=== PATIENT | male | born 1960 | race Caucasian/White ===

== ENCOUNTER 2016-12-26 13:58 | Emergency (ER) | payer MEDICARE ==
[~2016-12-26] VITALS: Ht 188 cm; Wt 147.0 kg
[2016-12-26 14:03] VITALS: BP 158/100; PULSE 93; RESP 16; TEMP 99.1; O2SAT 97
[2016-12-26] MEDS ORDERED: HYDR-3516 PO (14:32)
[2016-12-26] MEDS ORDERED: MELO-1 PO (14:32)
--- NOTE | 2016-12-26 14:35 | PD ---
HPI Chief Complaint: Complaint Time Seen by Provider: 14:31 Travel History International Travel<30 days: No Contact w/Intl Traveler<30days: No Traveled to known affect area: No History of Present Illness HPI This is a 56-year-old male who presents to the emergency department with 2 weeks of severe dysuria feeling like he skin a pass out when he pleases associated with hematuria, has not used permeative, and 1 day of swelling and pain in his left testicle, constant, severe. Patient reports he's had some subjective fevers and chills. He says he hasn't been sexually active in over a year. He's never had symptoms like this before. PFSH Past Medical History Hx Anticoagulant Therapy: No Cardiovascular Problems: Yes (HTN) Diabetes: No Social History Alcohol Use: Yes Tobacco Use: No Allergies-Medications (Allergen,Severity, Reaction): Coded Allergies: No Known Allergies (Unverified , 12/26/16) Reported Meds & Prescriptions Reported Meds & Active Scripts Active Reported Hydrocodone-Acetaminophen 5-325 mg Tab 1 Tab PO Q4-6H PRN Meloxicam 15 Mg Tab 15 Mg PO DAILY Review of Systems Except as stated in HPI: all other systems reviewed are Neg Physical Exam Narrative GENERAL:Well appearing, no acute distress SKIN: Warm and dry. HEAD: Atraumatic. Normocephalic. EYES: Pupils equal and round. No injection or drainage. ENT: Moist mucous membranes NECK: Trachea midline. CARDIOVASCULAR: Regular rate and rhythm. No murmur appreciated. RESPIRATORY: Clear to auscultation. Breath sounds equal bilaterally. GASTROINTESTINAL: Abdomen soft, non-tender, nondistended. : Swelling of the left testicle with some superficial erythema, tender to palpation along the posterior aspect of the testicle. MUSCULOSKELETAL: No obvious deformities. NEUROLOGICAL: Awake and alert. No obvious cranial nerve deficits. Moving all extremities. PSYCHIATRIC: Appropriate mood and affect; insight and judgment normal. Data Data Last Documented VS Vital Signs Date Time Temp Pulse Resp B/P Pulse Ox O2 Delivery O2 Flow Rate FiO2 12/26/16 14:03 99.1 93 16 158/100 97 Orders Urinalysis - C+S If Indicated (12/26/16 14:31) Us Testicles W Doppler (12/26/16 ) Urine Culture (12/26/16 14:40) Ketorolac Inj (Toradol Inj) (12/26/16 15:15) Labs Laboratory Tests Test 12/26/16 14:40 Urine Collection Type CLEAN CATCH Urine Color YELLOW Urine Turbidity CLEAR Urine pH 6.0 Urine Specific [place] 1.018 Urine Protein NEG mg/dL Urine Glucose (UA) NEG mg/dL Urine Ketones NEG mg/dL Urine Occult Blood MOD Urine Nitrite NEG Urine Bilirubin NEG Urine Leukocyte Esterase MOD Urine RBC 100-200 /hpf Urine WBC 100-200 /hpf Urine WBC Clumps FEW Urine Squamous Epithelial 0-5 /hpf Cells Urine Bacteria MANY /hpf Microscopic Urinalysis Comment CULTURE INDICATED MDM Medical Decision Making Medical Screen Exam Complete: Yes Emergency Medical Condition: Yes Interpretation(s) Temperature is 99.1, hypertensive Differential Diagnosis Epididymitis, epididymal orchitis, urinary tract infection, pyelonephritis Narrative Course This is a 56-year-old male who presents to the emergency department with 2 weeks of symptoms classic for epididymitis. Urinalysis demonstrates gross infection. Ultrasound was obtained which confirms epididymitis with no evidence of underlying abscess. Patient will be discharged on antibiotics. He denies sexual activity so he'll be treated with Levaquin. He is nontoxic appearing at this time. Diagnosis Primary Impression: Acute epididymitis Referrals: Bang Black DO as needed Patient Instructions: General Instructions Additional Instructions: If you develop high fevers, chills, lightheadedness, dizziness or worsening pain return to the emergency department. Complete your antibiotics as prescribed. Med/Other Pt SpecificInfo: Prescription(s) given Scripts Levofloxacin (Levaquin)500 Mg [id number] Mg PO DAILY 10 Days Ref 0 Prov:Gwen Whitlock MD 12/26/16 Disposition: 01 DISCHARGE HOME Condition: Stable Gwen Whitlock MD Dec 26, 2016 14:35
[2016-12-26 14:50] LABS: GLUCOSE,URINE NEG (NEG); KETONE, URINE NEG (NEG); NITRITE,URINE NEG (NEG)
[2016-12-26 14:52] LABS: BLOOD, URINE MOD (NEG)
[2016-12-26 14:57] LABS: METHOD OF COLLECTION CLEAN CATCH
[2016-12-26 14:58] LABS: BACTERIA, URINE MANY /hpf; URINE COLOR YELLOW (YELLW/STRAW)
[2016-12-26 14:59] LABS: RBC, URINE 100-200 /hpf (0-3)
[2016-12-26 15:00] LABS: COMMENT (UR) CULTURE INDICATED; CULTURE IF INDICATED CULTURE INDICATED; SQUAMOUS EPITHELIAL CELL URINE 0-5 /hpf (0-5)
[2016-12-26 15:01] LABS: WBC, URINE 100-200 /hpf (0-5)
[2016-12-26] MEDS ORDERED: KETOROLAC TROMETHAMINE 60 MG/2 ML (IM) VIAL IM ONE (15:15)
--- NOTE | 2016-12-26 16:11 | RADHPO ---
EXAM DATE/TIME: 12/26/2016 15:00 [facility] COMPARISON: No previous studies available for comparison. INDICATIONS : Testicular pain. MEDICAL HISTORY : Hypertension. Arthritis. Substance use. SURGICAL HISTORY : Appendectomy. Hernia repair. Orthopedic surgery, bilateral shoulders. Bilateral knee replacements. ENCOUNTER: Initial ACUITY: 2 days PAIN SCORE: 9/10 LOCATION: Bilateral scrotum. MEASUREMENTS: RIGHT TESTICLE: 4.6 x 3.7 x 1.9cm LEFT TESTICLE: 4.3 x 3.7 x 2.5cm FINDINGS: RIGHT TESTICLE: Homogeneous echotexture without intra or extratesticular mass. Epididymis within normal limits. Color Doppler flow within normal limits. LEFT TESTICLE: Homogeneous echotexture without intra or extratesticular mass. Enlarged heterogeneous epididymis with diffusely increased color Doppler flow. SCROTUM: Within normal limits. CONCLUSION: Findings suggesting epididymitis on the left. Elie Guadarrama MD on December 26, 2016 at 16:08 Board Certified Radiologist. This report was verified electronically.
[2016-12-26] MEDS ORDERED: LEVA500T PO (16:17)
[2016-12-26 16:30] VITALS: BP 129/69; PULSE 86; RESP 14; O2SAT 94
[2017-03-13] MEDS ORDERED: CYCL1TAB29 PO (16:01)
== END 2016-12-26 16:30 | disposition home or self-care (01) ==
LOC: PHED 13:58
DX: N45.1 Epididymitis (principal); I10 Essential (primary) hypertension; B96.20 Unspecified Escherichia coli [E. coli] as the cause of diseases classified elsewhere
CPT/HCPCS: 76870; 81001; 87077; 87086; 87186; 93975; 96372; 99284; J1885

== ENCOUNTER 2017-01-24 17:49 | Emergency (ER) | payer MEDICARE ==
[~2017-01-24] VITALS: Ht 188 cm; Wt 149.0 kg
[~2017-01-24 17:49] MED LIST: HYDR-3516 PO; LEVA500T PO; MELO-1 PO
[2017-01-24 18:11] VITALS: BP 130/85; PULSE 77; RESP 20; TEMP 98.2; O2SAT 95
[2017-01-24 18:53] LABS: BLOOD, URINE NEG (NEG); GLUCOSE,URINE NEG (NEG); KETONE, URINE NEG (NEG); NITRITE,URINE NEG (NEG); PH, URINE 5.5 (5.0-8.5)
[2017-01-24 19:03] LABS: URINE COLOR YELLOW (YELLW/STRAW)
[2017-01-24 19:04] LABS: COMMENT (UR) CULT NOT INDICATED; CULTURE IF INDICATED CULT NOT INDICATED; MUCUS URINE MANY /lpf (OCC); SQUAMOUS EPITHELIAL CELL URINE > 8 /hpf (0-5); WBC, URINE 0-2 /hpf (0-5)
[2017-01-24 19:21] VITALS: BP 162/77; PULSE 77; RESP 20; O2SAT 95
--- NOTE | 2017-01-24 20:21 | RADHPO ---
EXAM DATE/TIME: 01/24/2017 19:39 [facility] COMPARISON: US TESTICLE W/DOPPLER, December 26, 2016, 15:00. INDICATIONS : Testicular pain. MEDICAL HISTORY : Arthritis. Hypertension. Substance use. SURGICAL HISTORY : Appendectomy. Hernia. repair. Bilateral shoulders. Bilateral knees replacements. ENCOUNTER: Subsequent ACUITY: 1 week PAIN SCORE: 4/10 LOCATION: Bilateral scrotum. MEASUREMENTS: RIGHT TESTICLE: 4.1 x 3.3 x 2.2cm LEFT TESTICLE: 3.1 x 3.3 x 2.6cm FINDINGS: RIGHT TESTICLE: Homogeneous echotexture without intra or extratesticular mass. Blood flow is symmetric and within no rmal limits. No hydrocele or varicocele. Epididymis is within normal limits. LEFT TESTICLE: Homogeneous echotexture without intra or extratesticular mass. Blood flow is symmetric and within no rmal limits. Moderate varicocele again noted.. Left epididymis slightly enlarged and slightly hyperem ic relative to the right. SCROTUM: Within normal limits. CONCLUSION: 1. Left epididymitis possible no proper clinical setting but appears to be very mild and certainly mu ch less severe than on the prior ultrasound. 2. A moderate left varicocele is again noted, not appreciably changed. 3. No torsion. Samuel Jeffries MD on January 24, 2017 at 20:17 Board Certified Radiologist. This report was verified electronically.
[2017-01-24] MEDS ORDERED: DOXY100C PO (20:54)
--- NOTE | 2017-01-24 20:55 | PD ---
HPI Chief Complaint: Complaint Time Seen by Provider: 18:49 Travel History International Travel<30 days: No Contact w/Intl Traveler<30days: No Traveled to known affect area: No History of Present Illness HPI Patient 56-year-old male presents emergency department for evaluation of left testicular pain. Patient states he has a history of epididymitis and had just finished a course of Levaquin and gradually the pain came back. He denies any history dysuria or possibly for STD. Denies any fever denies any testicular swelling. He denies abdominal pain nausea vomiting diarrhea. States pain is been present for several days gradually worsening. PFSH Past Medical History Hx Anticoagulant Therapy: No Arthritis: Yes Cardiovascular Problems: Yes (HTN) Diabetes: No Hypertension: Yes Past Surgical History Abdominal Surgery: Yes (Hernia) Appendectomy: Yes Joint Replacement: Yes (BL knees) Social History Alcohol Use: Yes (DAILY) Tobacco Use: No Substance Use: Yes (Marijuana occ.) Allergies-Medications (Allergen,Severity, Reaction): Coded Allergies: No Known Allergies (Unverified , 01/24/17) Reported Meds & Prescriptions Reported Meds & Active Scripts Active Doxycycline Hyclate 100 Mg Cap 100 Mg PO BID Reported Hydrocodone-Acetaminophen 5-325 mg Tab 1 Tab PO Q4-6H PRN Meloxicam 15 Mg Tab 15 Mg PO DAILY Review of Systems Except as stated in HPI: all other systems reviewed are Neg Physical Exam Narrative GENERAL: Well-developed well-nourished, overweight but in no apparent distress. SKIN: Focused skin assessment warm/dry. HEAD: Atraumatic. Normocephalic. EYES: Pupils equal and round. No scleral icterus. No injection or drainage. ENT: No nasal bleeding or discharge. Mucous membranes pink and moist. NECK: Trachea midline. No JVD. CARDIOVASCULAR: Regular rate and rhythm. No murmur appreciated. RESPIRATORY: No accessory muscle use. Clear to auscultation. Breath sounds equal bilaterally. GASTROINTESTINAL: Abdomen soft, non-tender, nondistended. Hepatic and splenic margins not palpable. GENITOURINARY: Grossly normal penis, scrotum normal, testes nontender, cremasteric reflex intact, there is some tenderness over the epididymal head on the left side. MUSCULOSKELETAL: No obvious deformities. No clubbing. No cyanosis. No edema. NEUROLOGICAL: Awake and alert. No obvious cranial nerve deficits. Motor grossly within normal limits. Normal speech. PSYCHIATRIC: Appropriate mood and affect; insight and judgment normal. Data Data Last Documented VS Vital Signs Date Time Temp Pulse Resp B/P Pulse Ox O2 Delivery O2 Flow Rate FiO2 01/24/17 19:21 77 20 162/77 95 Room Air 01/24/17 18:11 98.2 Orders Urinalysis - C+S If Indicated (01/24/17 18:11) Gc And Chlamydia Pcr (01/24/17 18:11) Us Testicles W Doppler (01/24/17 ) Doxycycline (Vibramycin) (01/24/17 21:00) Labs Laboratory Tests Test 01/24/17 18:40 Urine Color YELLOW Urine Turbidity CLEAR Urine pH 5.5 Urine Specific [place] 1.028 Urine Protein NEG mg/dL Urine Glucose (UA) NEG mg/dL Urine Ketones NEG mg/dL Urine Occult Blood NEG Urine Nitrite NEG Urine Bilirubin NEG Urine Leukocyte Esterase NEG Urine WBC 0-2 /hpf Urine Squamous Epithelial > 8 /hpf Cells Urine Mucus MANY /lpf Microscopic Urinalysis Comment CULT NOT INDICATED Chlamydia trachomatis DNA NOT DETECTED (PCR) Neisseria gonorrhoeae DNA NOT DETECTED (PCR) MDM Medical Decision Making Medical Screen Exam Complete: Yes Emergency Medical Condition: Yes Differential Diagnosis Epididymitis, orchitis, prostate, STD, torsion unlikely. Narrative Course Last 24 hours Impressions Scrotum Ultrasound 01/24/17 0000 Signed Impressions: Service Date/Time: Tuesday, January 24, 2017 19:39 - CONCLUSION: 1. Left epididymitis possible no proper clinical setting but appears to be very mild and certainly much less severe than on the prior ultrasound. 2. A moderate left varicocele is again noted, not appreciably changed. 3. No torsion. Samuel Jeffries MD Patient becomes doxycycline, recommend follow-up with a primary care physician and urologist. He is stable for discharge this time. Diagnosis Primary Impression: Acute epididymitis Med/Other Pt SpecificInfo: Prescription(s) given Scripts Doxycycline Hyclate 100 Mg [id number] Mg PO BID #28 CAP Ref 0 Prov:Seferino Argueta MD 01/24/17 Disposition: 01 DISCHARGE HOME Condition: Stable Seferino Argueta MD Jan 24, 2017 20:54
[2017-01-24] MEDS ORDERED: DOXYCYCLINE HYCLATE 100 MG CAP PO ONE (21:00)
[2017-01-25 00:32] LABS: CHLAMYDIA PCR NOT DETECTED (NOT DETECT); NEISSERIA PCR NOT DETECTED (NOT DETECT)
[2017-03-13] MEDS ORDERED: CYCL1TAB29 PO (16:01)
== END 2017-01-24 21:11 | disposition home or self-care (01) ==
LOC: PHED 17:49
DX: N45.1 Epididymitis (principal); I86.1 Scrotal varices; I10 Essential (primary) hypertension; Z87.438 Personal history of other diseases of male genital organs; Z87.39 Personal history of other diseases of the musculoskeletal system and connective tissue; Z86.79 Personal history of other diseases of the circulatory system
CPT/HCPCS: 76870; 81001; 87491; 87591; 93975